=== PATIENT | male | born 2000 | race African-American/Black ===

== ENCOUNTER 2019-08-29 09:00 | Emergency (ER) | payer OTHER ==
[2019-08-29 09:17] VITALS: TEMP 99.4; BMI 21.5
--- NOTE | 2019-08-29 09:33 | PDOC ---
History of Present Illness - General Chief Complaint: Tremors Stated Complaint: HEADACHE,ABD, NAUSEOUS Time Seen by Provider: 08/29/19 09:32 - History of Present Illness Initial Comments: 08/29/19 10:06 Pt presents to the ED complaining of tremor, insomnia, increased anxiety, palpitations and nausea x one week, worse today. Patient has a history of anxiety, for which he takes xanax 0.5 mg, 1-2 tabs for days. This was prescribed to him by a physician in [place]. Patient [place] now emmigrated to this country and has not been able to renew his prescription. Also complaining of chest pain and shortness of breath. Past History - Past Medical History Allergies/Adverse Reactions: Allergies Allergy/AdvReac Type Severity Reaction Status Date / Time No Known Allergies Allergy Verified 08/29/19 09:17 Home Medications: Ambulatory Orders Alprazolam [Xanax] 0.5 mg PO DAILY PRN #7 tablet MDD 4 08/29/19 COPD: No Psychiatric Problems: Yes (ANXIETY) - Psycho Social/Smoking Cessation Hx Smoking History: Never smoked Hx Alcohol Use: No Drug/Substance Use Hx: No Review of Systems - Review of Systems Able to Perform ROS?: Yes Is the patient limited [place]olan proficient: No Constitutional: Yes: Malaise. No: Symptoms Reported, See HPI, Chills, Diaphoresis, Fever, Loss of Appetite, Night Sweats, Weakness, Weight Stable, Unintentional Wgt. Loss, Unexplained wgt Loss, Other HEENTM: No: Symptoms Reported, See HPI, Eye Pain, Blurred Vision, Tearing, Recent change in vision, Double Vision, Cataracts, Ear Pain, Ocular Prothesis, Ear Discharge, Nose Pain, Nose Congestion, Tinnitus, Nose Bleeding, Hearing Loss , Throat Pain, Throat Swelling, Mouth Pain, Dental Problems, Difficulty Swallowing, Mouth Swelling, Other Respiratory: Yes: Shortness of Breath. No: Symptoms reported, See HPI, Cough, Orthopnea, SOB with Exertion, SOB at Rest, Stridor, Wheezing, Productive cough, Hemoptysis, Other Cardiac (ROS): Yes: Chest Pain. No: See HPI, Edema, Irregular Heart Rate, Lightheadedness, Palpitations, Syncope, Chest Tightness, Other ABD/GI: Yes: Nausea. No: Symptoms Reported, See HPI, Abdominal Distended, Abd. Pain w/ defecation, Blood Streaked Bowels, Constipated, Diarrhea, Difficulty Swallowing, Poor Appetite, Poor Fluid Intake, Rectal Bleeding, Vomiting, Indigestion, Abdominal cramping, Tarry Stools, Other : No: Symptoms Reported, See HPI, Burning, Dysuria, Discharge, Frequency, Flank Pain, Hematuria, Incontinence, Pain, Urgency, Testicular Mass, Testicular Swelling, Lesions, Testicular Pain, Other Musculoskeletal: No: Symptoms Reported, See HPI, Back Pain, Gout, Joint Pain, Joint Swelling, Muscle Pain, Muscle Weakness, Neck Pain, Joint Stiffness, Other Integumentary: No: Symptoms Reported, See HPI, Bruising, Change in Color, Change in Hair/Nails, Dryness, Erythema, Flushing, Lesions, Lumps, Pallor, Pruritus, Rash, Sweating, Other Neurological: Yes: Tremors, Weakness Psychiatric: Yes: Anxiety, Sleep Pattern Change *Physical Exam - Vital Signs Last Vital Signs Temp Pulse Resp BP Pulse Ox 99.4 F 79 16 179/82 H 97 08/29/19 09:15 08/29/19 09:15 08/29/19 09:15 08/29/19 09:15 08/29/19 09:15 - Physical Exam Comments: 08/29/19 10:09 GEN: alert, Mildly anxious HEENT: normocephalic, atraumatic CV: tachycardic, no murmur Lungs: CTA b/l Abdomen: soft, non tender, non distended Ext: no edema Neuro: alert and oriented x 3, + tremor, + tongue fasiculations ED Treatment Course - LABORATORY CBC & Chemistry Diagram: 08/29/19 10:10 08/29/19 10:10 Medical Decision Making - Medical Decision Making 08/29/19 10:11 Pt presents to the ED with signs and symptoms consistent with mild-moderate benzodiazepine withdrawal. Will treat with librium, check labs and reassess. If patient continues to have worsening symptoms, will treat with IV benzos and admit. If patient improves with librium, will discharge home with rx for small amount of librium and follow up with clinic tomorrow. Discharge - Discharge Information Problems reviewed: Yes Clinical Impression/Diagnosis: Benzodiazepine withdrawal Qualifiers: Complication of substance-induced condition: uncomplicated Qualified Code(s): F13.230 - Sedative, hypnotic or anxiolytic dependence with withdrawal, uncomplicated Condition: Good Disposition: HOME - Admission No - Additional Discharge Information Prescription Drug Monitoring Program (I-STOP) results: I-STOP not reviewed - Follow up/Referral Referrals: [facility] [place] [facility] [place] [Provider Group] - Patient Discharge Instructions Patient Printed Discharge Instructions: DI for Drug or Alcohol Withdrawal Additional Instructions: you came to the ED because you felt sick after decreasing your dose of xanax. If you taper your dose too quickly, or stop abruptly, you can become very ill or even . You MUST follow up with the medical clinic as soon as possible. I have given you a small amount of xanax to last you until you see the clinic. You should return to the ED for confusion, seeing or hearing things that aren't there, severe headache, sweatiness, severe anxiety, palpitations, nausea and vomiting, passing out or seizures. - Post Discharge Activity
[2019-08-29] MEDS ORDERED: chlordiazePOXIDE HCL 25 MG CAPSULE PO ONE (10:04)
[2019-08-29] MEDS ORDERED: chlordiazePOXIDE HCL 25 MG CAPSULE ONE (10:17)
[2019-08-29 10:22] LABS: BASO % 0.5 % (0-2.0); HEMATOCRIT 53.3 % (35.4-49); LYMPH % 15.6 % (8-40); MCH 30.9 pg (25.7-33.7); MCHC 33.7 g/dl (32.0-35.9); MEAN CELL VOLUME 91.7 fl (80-96); MEAN PLT VOLUME 8.3 fl (7.5-11.1); NEUT % 77.9 % (42.8-82.8); PLATELET COUNT 244 K/MM3 (134-434); RBC 5.82 M/mm3 (4.00-5.60); RDW 13.4 % (11.9-15.9); WHITE BLOOD COUNT 5.6 K/mm3 (4.0-10.0)
[2019-08-29 10:51] LABS: BILIRUBIN,TOTAL 0.5 mg/dL (0.2-1); BLOOD UREA NITROGEN 6.6 mg/dL (7-18); CALCIUM 10.1 mg/dL (8.5-10.1); CREATININE 1.1 mg/dL (0.55-1.3); POTASSIUM 4.1 mmol/L (3.5-5.1); TOT PROT 8.5 g/dl (6.4-8.2)
[2019-08-29] MEDS ORDERED: SODIUM CHLORIDE 0.9% 500 ML INFUS.BAG IV ONE (10:58)
[2019-08-29 11:22] VITALS: BP 140/75; PULSE 71
--- NOTE | 2019-08-29 12:00 | EKG ---
Test Reason : Blood Pressure : / mmHG Vent. Rate : 067 BPM Atrial Rate : 067 BPM P-R Int : 148 ms QRS Dur : 088 ms QT Int : 384 ms P-R-T Axes : 059 065 044 degrees QTc Int : 405 ms NORMAL SINUS RHYTHM NORMAL ECG NO PREVIOUS ECGS AVAILABLE Confirmed by TRACY VALLECILLO, TONA ([id number]) on 08/29/2019 11:59:28 AM Referred By: Confirmed By:TONA MOLINA MD
== END 2019-08-29 12:50 | disposition home or self-care (01) ==
LOC: JER 09:00
DX: F13.230 Sedative, hypnotic or anxiolytic dependence with withdrawal, uncomplicated (principal); F41.9 Anxiety disorder, unspecified
CPT/HCPCS: 36415; 80053; 85025; 93005; 93010; 99284-25

== ENCOUNTER 2021-03-22 20:53 | Emergency (ER) | payer OTHER ==
[2021-03-22 21:01] VITALS: BP 144/73; PULSE 63; TEMP 98.6; BMI 22.9
[2021-03-22 22:07] LABS: PH,URINE 6.5 (5.0-8.0); URINE APPEARANCE CLEAR; URINE BILIRUBIN NEGATIVE (NEGATIVE); URINE COLOR YELLOW; URINE GLUCOSE (UA) NEGATIVE (NEGATIVE); URINE KETONE TRACE (NEGATIVE); URINE LEUK ESTERASE NEGATIVE (NEGATIVE); URINE NITRITE NEGATIVE (NEGATIVE); URINE PROTEIN NEGATIVE (NEGATIVE); URINE UROBILINOGEN 0.2 mg/dL (0.2-1.0)
[2021-03-22] MEDS ORDERED: KETOROLAC TROMETHAMINE 30 MG/1 ML VIAL IM ONE (22:40)
[2021-03-22] MEDS ORDERED: KETOROLAC TROMETHAMINE 30 MG/1 ML VIAL ONE (22:54)
[2021-03-22] MEDS ORDERED: IBUPROFEN 600 MG TABLET (FP) PO ONE ×2 (22:57→22:58)
== END 2021-03-22 23:02 | disposition home or self-care (01) ==
LOC: JER 20:53
PROC: 3E0233Z Introduction of Anti-inflammatory into Muscle, Percutaneous Approach (ICD-10-PCS; principal; 2021-03-22)
DX: N50.3 Cyst of epididymis (principal); K59.00 Constipation, unspecified; R10.32 Left lower quadrant pain
CPT/HCPCS: 74018-TC-FY; 76870-TC; 81003; 99284-25